=== PATIENT | female | born 1955 | race Caucasian/White ===

== ENCOUNTER 2016-12-04 13:09 | Emergency (ER) | END 2016-12-04 16:13 | disposition home or self-care (01) | DX: S13.9XXA Sprain of joints and ligaments of unspecified parts of neck, initial encounter (principal); R51 Headache; W18.09XA Striking against other object with subsequent fall, initial encounter; Y92.9 Unspecified place or not applicable | CPT/HCPCS: 70450; 72125; Z7502; Z7610 ==